=== PATIENT | male | born 1970 | race Caucasian/White ===

== ENCOUNTER → 2021-07-12 | Outpatient (CLI) | payer OTHER ==
[~2021-07-12] MED LIST: ECOTRIN81 MG PO; HYDROCHLOROTHIA25 MG PO; NORVASC 5 MG TAB5 MG PO; PRINIVIL20 MG PO
== END ==
LOC: KOH-I 13:21
DX: F17.210 Nicotine dependence, cigarettes, uncomplicated (principal); R91.1 Solitary pulmonary nodule
CPT/HCPCS: 71271